=== PATIENT | male | born 1975 | race Caucasian/White ===

== ENCOUNTER 2025-06-30 08:54 | Emergency (ER) | payer OTHER, SELFPAY ==
--- OUTSIDE RECORDS SUMMARY | 2025-06-30 08:56 | XMS_ITS | Clinical Summary ---
Author Organization [facility] Address [address] [place] [id number] Care Team Providers Care Assemblyman Or Woman Name Role Phone Unavailable Primary Care Provider Unavailabl e Social History Tobacco Use Types Packs/Day Years Used Date Smoking Tobacco: Never Assessed Sex and Gender Information Value Date Recorded Sex Assigned at Not on file Legal Sex Male 5:54 PM CDT Gender Identity Not on file Sexual Orientation Not on file Plan of Treatment Health Maintenance Due Date Last Done Comments Colorectal Cancer Screening Colonoscopy (10 Years) 1975 Annual Physical 1978 Hepatitis C 1993 DTaP, Tdap and Td Vaccines ( 1 - Tdap) 1994 Hepatitis B Vaccines (1 of 3 - 19+ 3-dose series) 1994 COVID-19 Vaccine ( - 2024-2 6 season) 2025 Influenza Adult (#1) 2025 Pneumococcal Vaccine: 50+ Ye ars (1 of 1 - PCV) 2025 Zoster Vaccines (1 of 2) 2025 Hepatitis A Vaccines Aged Out No long er eligible based on patient's age to complete this topic Meningococcal B Vaccine Aged Out No l onger eligible based on patient's age to complete this topic Meningococcal Vaccine Aged Out No yuval ira eligible based on patient's age to complete this topic RSV Immunizations Under 20 Months Aged Out No longer eligible based on patient's age to complete this topic
--- OUTSIDE RECORDS SUMMARY | 2025-06-30 09:44 | XMS_ITS | Clinical Summary ---
Author Organization [facility] Address [address] [place] [id number] Care Team Providers Care Supervisor Loading Name Role Phone Unavailable Primary Care Provider [...]
--- NOTE | 2025-06-30 10:14 | PC.NURSE ---
Patient presents to the desk to state he was going to leave and come back anothe time. patient denies any symptoms with the central line. patient is A&Ox4 and in no distress.
== END 2025-06-30 11:34 | disposition left against medical advice (07) ==
PROVIDERS: PCP Family Medicine Adolescent Medicine
DX: Z53.21 Procedure and treatment not carried out due to patient leaving prior to being seen by health care provider (principal)
CPT/HCPCS: 99199

== ENCOUNTER 2025-07-01 07:53 | Emergency (ER) | payer OTHER, SELFPAY ==
--- NOTE | ~2025-07-01 | XR_ITS ---
Examination: XR chest 1V portable Clinical History: evaluation of dialysis catheter Comparison: None Technique: Portable AP Findings: Right neck permacath. Cardiomegaly. Lungs clear. No acute bony abnormality. IMPRESSION: 1. Right neck permacath tip at cavoatrial junction. 2. No acute cardiopulmonary abnormality on portable chest x-ray. Reviewed, dictated and finalized at location [facility]
[2025-07-01 08:00] VITALS: BP 220/97; PULSE 57; RESP 20; TEMP 36.4; O2SAT 100
--- OUTSIDE RECORDS SUMMARY | 2025-07-01 08:01 | XMS_ITS | Clinical Summary ---
Author Organization [facility] Address [address] [place] [id number] Care Team Providers Care Mill Platform Supervisor Name Role Phone Unavailable Primary Care Provider [...]
[2025-07-01 08:06] VITALS: RESP 20
--- NOTE | 2025-07-01 08:43 | ED_ITS ---
HPI - General Adult General Chief complaint: Unspecified Stated complaint: dialysis catheter removal Time Seen by Provider: 07/01/25 08:19 History of Present Illness HPI narrative: 50-year-old male presents emergency department for evaluation for potential having his dialysis catheter removed. Patient had the dialysis catheter placed at [facility] for acute kidney injury and fluid overload. Patient states he has not been going to dialysis because they have not been getting as much fluid off. Patient states he is urinating normally. Patient states he had has not had follow-up with Nephrology since being discharged. Patient initially wanted to have a dialysis catheter removed but states they were not able to do this at [facility] in [place] since there is no physician at the facility over the week of . Patient presents emergency department for evaluation. Patient denies any pain or complaints. Related Data Allergies Allergy/AdvReac Type Severity Reaction Status Date / Time No Known Allergies Allergy Verified 07/01/25 08:06 [facility] Past Medical History Medical History (Updated 07/01/25 @ 10:09 by Bean Henriquez MD) Morbid obesity History of diabetic ulcer of foot (2015) Family History Family History (Updated 01/22/25 @ 09:26 by JAGDISH Zavala) Father Diabetes mellitus Mother drug addiction Sibling No problems noted. Social History Social History (Updated 01/22/25 @ 09:26 by JAGDISH Zavala) Smoking status: Never smoker Second hand tobacco smoke exposure: No Alcohol intake: current Substance use: never Substance use type: does not use Lack of Transportation: No Lack of Food: Never True Current Housing: I Have Housing Concerned About Future Housing: No Difficulty Paying Gas/Electric Bills: No Difficulty Paying for Meds: No Currently Unemployed: No Education: Master's Degree or Higher Difficulty w/ Childcare or Family Care: No Living arrangements: with family Occupation/Education: occupation Additional occupation/education comments: [employer] Gender identity (if verbalized by the patient): Male Sexual Orientation (if Verbalized by the Patient): Straight or Heterosexual Spiritual care concerns: No Exam 2 Narrative: APPEARANCE: Well appearing, no pain, no distress, well-nourished. HEAD: normocephalic, atraumatic. EYES: PERRLA/EOMI, conjunctivae clear. NOSE: Normal no drainage EARS:TMS clear with good light reflex. THROAT: Pharynx clear, no exudate. NECK: Supple. No adenopathy, no masses. RESPIRATORY: Airway patent, respirations nonlabored. Clear to auscultation bilaterally, no rales, rhonchi, wheezing. CARDIOVASCULAR: Regular rate and rhythm without murmurs rubs or gallops. ABDOMINAL: Soft, nontender, nondistended, normal bowel sounds MUSCULOSKELETAL: Moves all extremities. Strength/ROM intact, No edema, No calf tenderness. NEURO: Alert. Cranial nerves II through XII intact. Good gait. Good coordination SKIN: Well-appearing dialysis catheter on right chest Course Vital Signs Vital signs: Vital Signs Temperature 97.6 F 07/01/25 08:00 Pulse Rate 57 L 07/01/25 08:00 Respiratory Rate 20 07/01/25 08:00 Blood Pressure 220/97 H 07/01/25 08:00 Pulse Oximetry 100 07/01/25 08:00 Oxygen Delivery Room Air 07/01/25 08:00 Temperature 97.6 F 07/01/25 08:00 Pulse Rate 54 L 07/01/25 09:48 Respiratory Rate 17 07/01/25 09:48 Blood Pressure 210/95 H 07/01/25 09:48 Pulse Oximetry 100 07/01/25 09:48 Oxygen Delivery Room Air 07/01/25 08:00 [facility] MDM Narrative Medical decision making narrative: 50-year-old male presents emergency department for evaluation to have his dialysis port removed. Patient was found to be hypertensive but did not take his metoprolol today. Patient is currently afebrile the leukocytosis but does have significant abnormalities on his CMP. Patient potassium was 6.0 and patient's creatinine was 7.64. Patient states he has not been going to dialysis. Patient was offered admission for dialysis. Patient was offered admission for treatment of his hyperkalemia. Patient declined admission. Patient also declined any medical treatment for his blood pressure or for his potassium in the emergency department. Patient is going to be sign out AMA. Patient was advised that he is making the wrong decision and that an elevated potassium could lead to a cardiac arrhythmia and to his and failure to treat his kidney injury could lead to him being on permanent dialysis. Patient is alert orientated and is emphatic about not staying. Patient was told multiple times that he was making the wrong decision and that this could be fatal. Patient was also strongly encouraged to return to the emergency department if he had any worsening symptoms. I paged nephrology as patient states he does not have outpatient follow-up, nephrology did not return the call. Differential Diagnosis Differential Diagnosis: hyperkalemia, chronic kidney disease, acute kidney injury, hypertension Lab Data MDM Lab Attestation statement: I personally reviewed the patient's lab results. 07/01/25 09:09 07/01/25 09:09 Labs: Lab Results 07/01/25 Range/Units 09:09 WBC 8.0 (4.5-10.0) K/mm3 RBC 3.55 L (4.6-6.20) M/mm3 Hgb 9.7 L (14.0-18.0) g/dL Hct 31.2 L (42.0-52.0) % MCV 87.9 (80-100) fl MCH 27.3 (26-34) pg MCHC 31.1 L (32-36) g/dl RDW 14.5 (11.5-14.5) % Plt Count 187 (150-375) k/mm3 MPV 10.7 H (7.4-10.4) fl Immature Gran % (Auto) 0.4 (0-0.5) % Neut % (Auto) 60.3 (45.5-73.1) % Lymph % (Auto) 24.0 (18.3-44.2) % [place] % (Auto) 8.4 (2.6-8.5) % Eos % (Auto) 5.6 H (0-4.4) % Baso % (Auto) 1.3 H (0.2-1.2) % Lymph # (Auto) 1.92 (0.9-3.2) K/mm3 [place] # (Auto) 0.7 H (0.1-0.6) K/mm3 Eos # (Auto) 0.5 H (0-0.3) K/mm3 Baso # (Auto) 0.1 (0.0-0.1) K/mm3 Abs Immat Gran (auto) 0.03 (0.00-0.031) K/mm3 Absolute Neuts (auto) 4.8 (1.3-6.7) K/mm3 Absolute Nucleated RBC 0.000 (0.0-0.012) K/mm3 Nucleated RBC % 0.0 (0.0-0.2) % Sodium 138 (137-145) mmol/L Potassium 6.0 H* (3.4-5.0) mmol/L Chloride 109 H (98-107) mmol/L Carbon Dioxide 21 L (22-30) mmol/L Anion Gap 8 (4-12) mmol/L BUN 62 H (9-20) mg/dL Creatinine 7.64 H (0.7-1.3) mg/dL Estim Creat Clear Calc 20 ml/min Estimated GFR 8 L (59 - ) Glucose 124 H (65-110) mg/dL Calcium 8.5 (8.4-10.2) mg/dL Total Bilirubin 0.3 (0.2-1.3) mg/dL AST 23 (17-59) U/L ALT 16 (6-50) U/L Alkaline Phosphatase 86 (38-126) U/L Total Protein 6.0 L (6.3-8.2) g/dL Albumin 2.8 L (3.5-5.1) g/dL Imaging Data Attestation: I personally reviewed and interpreted this imaging study as follows: My impression: chest x-ray: PermCath and no acute cardiopulmonary abnormality Radiologist's impression: ITS Impressions Chest X-Ray 07/01/25 09:07 IMPRESSION: 1. Right neck permacath tip at cavoatrial junction. 2. No acute cardiopulmonary abnormality on portable chest x-ray. Critical Care Time Critical Care Time Critical Care Time: Yes Time Type: Intermittent Initial evaluation, discuss w/ involved parties, attempting to gather old records: 10 minutes Documenting medical record: 10 minutes Review of results (EKG's, labs, imaging): 5 minutes Serial repeat bedside evaluation: 10 minutes Discussing case with multiple memebers of the care team and consultants: 5 minutes Total Critical Care Time: 40 Critical Care Time Overview: I spent an extended period of time discussing the patient's results with him and trying to convince the patient to stay for hospitalization Discharge Plan Discharge Clinical Impression: Hypertension, Acute hyperkalemia, Acute kidney failure Patient Disposition: Left Against Medical Advice Condition: Stable Additional Instructions: your kidney function has worsened. your potassium was critically high. You were offered treatment for your high potassium. You were offered potential admission for emergent dialysis. You declined these and preferred to sign out against medical advice. please call or return to the emergency department at any time to complete your medical workup. you are also being provided follow-up with nephrology. Patient Language: Monegasque Prescriptions: No Action testosterone cypionate 200 mg/mL oil See Rx Instructions IM Q7D Qty: 10 2RF Rx Instructions: inject 0.8 ml IM every 7 days; metoprolol succinate 100 mg tablet extended release 24 hr See Rx Instructions .ROUTE .COMPLEX Qty: 90 2RF Dose Instruction: TAKE 1 TABLET BY MOUTH DAILY Rx Instructions: TAKE 1 TABLET BY MOUTH DAILY Follow-up/Referrals: Adolfo Louis MD [Physician, Nephrology] Mervin Borrero MD [Primary Care Provider, Family Practice]
[2025-07-01 09:15] LABS: Hematocrit 31.2 % (42.0-52.0); Hemoglobin 9.7 g/dL (14.0-18.0); Immature Granulocyte Percent A 0.4 % (0-0.5); Lymphocytes Absolute Auto 1.92 K/mm3 (0.9-3.2); Mean Corpuscular HGB Conc 31.1 g/dl (32-36); Mean Corpuscular Hemoglobin 27.3 pg (26-34); Mean Corpuscular Volume 87.9 fl (80-100); Nucleated Red Blood Cells Absolute Auto 0.000 K/mm3 (0.0-0.012); Nucleated Red Blood Cells Perc 0.0 % (0.0-0.2); Platelet Count Result 187 k/mm3 (150-375); Red Blood Count 3.55 M/mm3 (4.6-6.20); White Blood Count 8.0 K/mm3 (4.5-10.0)
[2025-07-01 09:42] LABS: Alanine Aminotransferase 16 U/L (6-50); Albumin Level 2.8 g/dL (3.5-5.1); Alkaline Phosphatase 86 U/L (38-126); Anion Gap 8 mmol/L (4-12); Aspartate Amino Transferase 23 U/L (17-59); Bilirubin,Total 0.3 mg/dL (0.2-1.3); Blood Urea Nitrogen 62 mg/dL (9-20); Calcium 8.5 mg/dL (8.4-10.2); Carbon Dioxide 21 mmol/L (22-30); Chloride 109 mmol/L (98-107); Estimated CRCL calculation 20 ml/min; Estimated Glomerular Filt Rate 8; Glucose 124 mg/dL (65-110); Potassium 6.0 mmol/L (3.4-5.0); Sodium 138 mmol/L (137-145); Total Protein 6.0 g/dL (6.3-8.2)
[2025-07-01 09:48] VITALS: BP 210/95; PULSE 54; RESP 17; O2SAT 100
--- NOTE | 2025-07-01 10:03 | PC.NURSE ---
Pt refuse treatment, Pt verbalized understanding of all the risks. Pt had a long discussion with EDP. Pt wants to leave AMA.
--- OUTSIDE RECORDS SUMMARY | 2025-07-01 10:25 | XMS_ITS | Clinical Summary ---
Author Organization [facility] Address [address] [place] [address] Care Team Providers Care Rug Sample Beveler Name Role Phone Unavailable Primary Care Provider [...]
== END 2025-07-01 10:22 | disposition left against medical advice (07) ==
PROVIDERS: Emergency Provider Emergency Medicine; PCP Family Medicine Adolescent Medicine
DX: I10 Essential (primary) hypertension (principal); E87.5 Hyperkalemia; N17.9 Acute kidney failure, unspecified
CPT/HCPCS: 36415; 71045; 80053; 85025; 99283